=== PATIENT | male | born 1960 | race Caucasian/White ===

== ENCOUNTER → 2016-08-14 | Outpatient (CLI) | payer OTHER | LOC: FIMAGING 13:41 | PROVIDERS: ATTEND Family Medicine | DX: M25.511 Pain in right shoulder (principal) ==

== ENCOUNTER → 2016-10-18 | Outpatient (CLI) | payer OTHER | LOC: FLAB 11:00 → EDSTATUS 11:01 → FIMAGING 11:01 | PROVIDERS: ATTEND Family Medicine | DX: M12.841 Other specific arthropathies, not elsewhere classified, right hand (principal) ==

== ENCOUNTER → 2016-10-29 | Outpatient (CLI) | payer OTHER | LOC: FIMAGING 06:51 | PROVIDERS: ATTEND Family Medicine | DX: M75.111 Incomplete rotator cuff tear or rupture of right shoulder, not specified as traumatic (principal); S43.39 Subluxation and dislocation of other parts of shoulder girdle; S43.431D Superior glenoid labrum lesion of right shoulder, subsequent encounter; M25.511 Pain in right shoulder; M19.011 Primary osteoarthritis, right shoulder ==

== ENCOUNTER 2017-01-31 18:03 | Emergency (ER) | payer MEDICAID, OTHER ==
[2017-01-31 18:14] VITALS: O2SAT 93
[2017-01-31] MEDS ORDERED: NS 1,000 ML IV ONE (18:39)
--- NOTE | 2017-01-31 18:40 | EDPHY ---
HPI/HX/ROS/PE/MDM Narrative: CHIEF COMPLAINT: Right-sided rib pain HISTORY OF PRESENT ILLNESS: The patient is a 56 y/o male who presents with right sided chest pain for 4-5 days. He notes this pain feels similar to prior fractured ribs. He fell on his left side last week, but does not remember any recent falls. The pain is exacerbated while breathing. He states he last drank alcohol yesterday. Denies alcohol withdrawal seizures, pancreatitis, or hepatitis. Patient denies fever, chills, shortness of breath, palpitations, vomiting, diarrhea, urinary complaints, headache, lightheadedness. No history of head trauma, neck pain, or LOC. REVIEW OF SYSTEMS: Aside from elements discussed in the HPI, a comprehensive 10-point review of systems was reviewed. Patient appears intoxicated so ROS may be unreliable. PAST MEDICAL HISTORY: Alcoholism SOCIAL HISTORY: Friend at bedside VITAL SIGNS: Reviewed by me GENERAL: Well-developed, well-nourished, resting comfortably in no respiratory distress. HEENT: Atraumatic. Eyes: No icterus, no injection. Mouth: moist mucous membranes. No erythema or lesions. Neck: supple with no adenopathy. LUNGS: Clear to auscultation bilaterally, no wheezes, rhonchi or rales. No crepitus. CHEST: Right lateral chest wall and axilla tenderness to palpation. No crepitus. No subcutaneous air. No bruising. CARDIAC: Regular rate and rhythm, no rubs, murmurs or gallops. ABDOMEN: Soft, nontender, nondistended, bowel sounds normal. BACK: Ecchymosis on lower left back and lower left abdomen. Nontender. No CVA tenderness. EXTREMITIES: No trauma. No edema. Range of motion is normal throughout. NEURO: Alert and oriented, grossly nonfocal. SKIN: Warm and dry, no rash. PSYCHIATRIC: Normal mentation, no agitation. Portions of this note were transcribed by a medical office supervisor. I personally performed a history, physical exam, medical decision making, and confirmed accuracy of information the transcribed note. ED Course: The patient is a 56 y/o male who presents with right lateral chest wall and axilla tenderness. He is an alcoholic, but denies drinking anything today. Plan on chest x-ray to rule out rib fractures as well as baseline lab testing. No acute right sided fractures on xray. Labs demonstrate elevation of LFTs, lipase, and a markedly elevated serum alcohol level of 421. 2000: Patient requesting to be discharged. Held long discussion concerning the lab results and the fact that patient is quite functional at a alcohol level of 421. He insists that his last drink was last night. Sober friend will take patient home. Return precautions given. See discharge instructions. - Data Points Imaging Results: CXR: Impression: ? Any acute symptoms related to the left eighth rib or thoracic spine. Read by Dr Sofia. Laboratory Results: Laboratory Results 01/31/17 18:43 01/31/17 18:43 Medications Given: Discontinued Medications Sodium Chloride (Ns) 1,000 mls @ 0 mls/hr IV EDNOW ONE; Wide Open PRN Reason: Protocol Stop: 01/31/17 18:40 Last Admin: 01/31/17 18:44 Dose: 1,000 mls General Time Seen by Provider: 01/31/17 18:21 Initial Vital Signs: Initial Vital Signs Temperature (C) 36.9 C 01/31/17 18:11 Heart Rate 87 01/31/17 18:11 Respiratory Rate 18 01/31/17 18:11 Blood Pressure 132/88 H 01/31/17 18:11 O2 Sat (%) 93 01/31/17 18:11 O2 Delivery Mode Room Air Allergies/Adverse Reactions: No Known Allergies Allergy (Unverified 01/31/17 18:11) Home Medications: Medication Instructions Recorded NK [No Known Home Meds] 01/31/17 Departure - Departure Disposition: Home, Routine, Self-Care Clinical Impression: Alcohol intoxication Qualifiers: Complication of substance-induced condition: uncomplicated Qualified Code(s): F10.920 - Alcohol use, unspecified with intoxication, uncomplicated Rib contusion Qualifiers: Encounter type: initial encounter Laterality: right Qualified Code(s): S20.211A - Contusion of right front wall of thorax, initial encounter Condition: Fair Instructions: Alcohol Intoxication (ED), Abuse of Alcohol (ED), Alcohol Use Disorder (ED) Additional Instructions: Your alcohol level is evening is significantly elevated, over 4 times the legal limit. Your chest x-ray demonstrates no rib fractures. Stop drinking alcohol in excessive quantities. At this point, your life is being threatened by your alcohol use. Referrals: Power Bernabe [Primary Care Provider] - As per Instructions Report Scribed for: Eloisa Cardona Report Scribed by: Alise Lutz Date of Report: 01/31/17 Time of Report: 19:02
[2017-01-31 18:52] LABS: % IMMATURE GRANULYOCYTES 0.7 % (0.0-1.1); ABSOLUTE IMMATURE GRANULOCYTES 0.03 10^3/uL (0.00-0.10); ADD DIFF? NO; ADD MORPH? NO; ADD SCAN? NO; ATYPICAL LYMPHOCYTE FLAG 10 (0-99); FRAGMENT RBC FLAG 10 (0-99); HEMATOCRIT 43.6 % (40.0-51.0); LEFT SHIFT FLG 0 (0-99); LIPEMIA HEMOLYSIS FLAG 90 (0-99); MEAN CELL HEMOGLOBIN 32.9 pg (27.9-34.1); MEAN CELL HEMOGLOBIN CONCENTR. 34.4 g/dL (32.4-36.7); MEAN CELL VOLUME 95.6 fL (81.5-99.8); MEAN PLATELET VOLUME 8.7 fL (8.7-11.7); PLATELET CLUMPS FLAG 10 (0-99); PLATELET COUNT 187 10^3/uL (150-400); RED BLOOD CELL COUNT 4.56 10^6/uL (4.40-6.38); RED CELL DISTRIBUTION WIDTH 13.8 % (11.5-15.2)
[2017-01-31 19:13] LABS: INR 1.03 (0.83-1.16); PROTIME(PATIENT) 13.4 SEC (12.0-15.0)
[2017-01-31 19:14] LABS: APTT 26.9 SEC (23.0-38.0)
[2017-01-31 19:17] LABS: ALANINE AMINOTRANSFERASE 82 IU/L (21-72); ALBUMIN 4.6 g/dL (3.5-5.0); ALKALINE PHOSPHATASE 103 IU/L (38-126); ANION GAP 21 mEq/L (8-16); ASPARTATE AMINOTRANSFERASE 101 IU/L (17-59); BILIRUBIN,TOTAL 0.7 mg/dL (0.1-1.4); BILIRUBIN-CONJUGATED 0.4 mg/dL (0.0-0.5); BILIRUBIN-UNCONJUGATED 0.3 mg/dL (0.0-1.1); CALCIUM 8.7 mg/dL (8.5-10.4); CARBON DIOXIDE 21 mEq/l (22-31); CHLORIDE 97 mEq/L (97-110); CREATININE 0.6 mg/dL (0.7-1.3); GLOMERULAR FILTRATION RATE > 60; GLUCOSE 74 mg/dL (70-100); POTASSIUM 4.1 mEq/L (3.5-5.2); SODIUM 139 mEq/L (134-144); TOTAL PROTEIN 7.1 g/dL (6.3-8.2)
[2017-01-31 19:35] LABS: ETHANOL SERUM 421 mg/dL (0-10)
[2017-01-31 20:17] VITALS: BP 121/77; PULSE 85; RESP 16; TEMP 97.9
== END 2017-01-31 20:17 | disposition home or self-care (01) ==
DX: S20.211A Contusion of right front wall of thorax, initial encounter (principal); W18.39XA Other fall on same level, initial encounter; E86.9 Volume depletion, unspecified; F10.920 Alcohol use, unspecified with intoxication, uncomplicated
CPT/HCPCS: G0480

== ENCOUNTER 2017-03-31 05:53 | Day surgery (SDC) | payer MEDICAID ==
--- NOTE | 2017-03-28 11:08 | PDHPUP ---
History & Physical Update H&P update statement: This history and physical update is based on an assessment of the patient which was completed after admission or registration (within 24 hours), but prior to the surgery/procedure. H&P update: H&P reviewed & patient examined, no change in patient's condition since H&P completed H&P changes: Patient seen in office at [facility] [place] on 03/18/17 for pre op and H&P, no change since then
--- NOTE | 2017-03-28 11:08 | PDHPUP ---
History & Physical Update H&P update statement: This history and physical update is based on an assessment of the patient which was completed after admission or registration (within 24 hours), but prior to the surgery/procedure. H&P update: H&P reviewed & patient examined, no change in patient's condition since H&P completed H&P changes: Patient seen in office at [facility] [place] on 03/18/17 for pre op and H&P, no change since then
--- NOTE | 2017-03-28 11:08 | PDHPUP ---
History & Physical Update H&P update statement: This history and physical update is based on an assessment of the patient which was completed after admission or registration (within 24 hours), but prior to the surgery/procedure. H&P update: H&P reviewed & patient examined, no change in patient's condition since H&P completed H&P changes: Patient [place] [facility] [place] pre op and H&P, no change since then
[2017-03-31] MEDS ORDERED: ceFAZolin 2 GM/SWFI 2 GM/20 ML SYR IVP ONE (06:09)
[2017-03-31] MEDS ORDERED: LR 1,000 ML IV SCH (06:09)
[2017-03-31] MEDS ORDERED: ROPIVACAINE HCL 20 MG/10 ML INJ EP ONE ×2 (06:16→06:58)
[2017-03-31] MEDS ORDERED: PROPOFOL 200 MG/20 ML VIAL ONE ×2 (06:41)
[2017-03-31] MEDS ORDERED: LIDOCAINE 2% 100 MG/5 ML SYR ONE (06:41)
[2017-03-31] MEDS ORDERED: fentaNYL 100 MCG/2 ML INJ ONE (06:41)
[2017-03-31] MEDS ORDERED: ROCURONIUM 50 MG/5 ML VIAL ONE (06:41)
[2017-03-31] MEDS ORDERED: clonIDINE 1 MG/10 ML VIAL EP ONE (06:48)
[2017-03-31] MEDS ORDERED: ROPIVACAINE HCL 150 MG/30 ML INJ ONE (06:48)
[2017-03-31] MEDS ORDERED: LIDOCAINE 1% 2 ML INJ ONE (06:56)
[2017-03-31] MEDS ORDERED: MIDAZOLAM 2 MG/2 ML VIAL IVP ONE (06:57)
--- NOTE | 2017-03-31 07:01 | PDANEPAE ---
ANE History of Present Illness 56 yo M with R shoulder rotator cuff injury and labral tear here for arthroscopy and repair ANE Past Medical History - Cardiovascular History Hx Hypertension: No Hx Arrhythmias: No Hx Chest Pain: No Hx Coronary Artery / Peripheral Vascular Disease: No Hx CHF / Valvular Disease: No Hx Palpitations: No - Pulmonary History Hx COPD: No Hx Asthma/Reactive Airway Disease: No Hx Recent Upper Respiratory Infection: No Hx Oxygen in Use at Home: No Hx Sleep Apnea: No Sleep Apnea Screening Result - Last Documented: Negative - Neurologic History Hx Cerebrovascular Accident: No Hx Seizures: No Hx Dementia: No - Endocrine History Hx Diabetes: No - Renal History Hx Renal Disorders: No - Liver History Hx Hepatic Disorders: No - Neurological & Psychiatric Hx Hx Neurological and Psychiatric Disorders: No - Cancer History Hx Cancer: No - Congenital Disorder History Hx Congenital Disorders: No - GI History Hx Gastrointestinal Disorders: No Gastrointestinal History Comment: occ reflux with spicy food - Other Health History Other Health History: wears glasses for distance - Chronic Pain History Chronic Pain: No - Surgical History Prior Surgeries: right shoulder surgery 40 yrs ago. right big toe 10 years go. broken ribs and collapsed lung 2012 ANE Review of Systems Review of Systems: - Exercise capacity Exercise capacity: >=4 METS METS (RN): 4 METS - Systems Muscolosketal: Reports: other (OA) ANE Patient History - Allergies Allergies/Adverse Reactions: No Known Allergies Allergy (Verified 03/20/17 11:51) - Home Medications Home Medications: Herbals/Supplements -Info Only 03/20/17 [Last Taken 03/25/17] IBUPROFEN 03/20/17 [Last Taken 03/25/17] Naltrexone HCl 03/20/17 [Last Taken 03/24/17] - NPO status NPO Status: no food or drink >8 hours NPO Since - Liquids (Date): 03/30/17 NPO Since - Liquids (Time): 21:00 NPO Since - Solids (Date): 03/30/17 NPO Since - Solids (Time): 18:30 - Anes Hx Anes Hx: no prior problems - Smoking Hx Smoking Status: Never smoked - Alcohol Use Alcohol Use: Sober - Family Anes Hx Family Anes Hx: none Family Hx Anesthesia Complications: none ANE Labs/Vital Signs - Vital Signs Blood Pressure: 104/64 Heart Rate: 67 Respiratory Rate: 17 O2 Sat (%): 94 Height: 172.72 cm Weight: 83.915 kg
--- NOTE | 2017-03-31 07:06 | PDANEPAE ---
ANE Past Medical History - Cardiovascular History Hx Hypertension: No Hx Arrhythmias: No Hx Chest Pain: No Hx Coronary Artery / Peripheral Vascular Disease: No Hx CHF / Valvular Disease: No Hx Palpitations: No - Pulmonary History Hx COPD: No Hx Asthma/Reactive Airway Disease: No Hx Recent Upper Respiratory Infection: No Hx Oxygen in Use at Home: No Hx Sleep Apnea: No Sleep Apnea Screening Result - Last Documented: Negative - Neurologic History Hx Cerebrovascular Accident: No Hx Seizures: No Hx Dementia: No - Endocrine History Hx Diabetes: No - Renal History Hx Renal Disorders: No - Liver History Hx Hepatic Disorders: No - Neurological & Psychiatric Hx Hx Neurological and Psychiatric Disorders: No - Cancer History Hx Cancer: No - Congenital Disorder History Hx Congenital Disorders: No - GI History Hx Gastrointestinal Disorders: No Gastrointestinal History Comment: occ reflux with spicy food - Other Health History Other Health History: wears glasses for distance - Chronic Pain History Chronic Pain: No - Surgical History Prior Surgeries: right shoulder surgery 40 yrs ago. right big toe 10 years go. broken ribs and collapsed lung 2012 ANE Review of Systems Review of Systems: - Exercise capacity METS (RN): 4 METS ANE Patient History - Allergies Allergies/Adverse Reactions: No Known Allergies Allergy (Verified 03/20/17 11:51) - Home Medications Home Medications: Herbals/Supplements -Info Only 03/20/17 [Last Taken 03/25/17] IBUPROFEN 03/20/17 [Last Taken 03/25/17] Naltrexone HCl 03/20/17 [Last Taken 03/24/17] - NPO status NPO Since - Liquids (Date): 03/30/17 NPO Since - Liquids (Time): 21:00 NPO Since - Solids (Date): 03/30/17 NPO Since - Solids (Time): 18:30 - Smoking Hx Smoking Status: Never smoked - Alcohol Use Alcohol Use: Sober - Family Anes Hx Family Hx Anesthesia Complications: none ANE Labs/Vital Signs - Vital Signs Blood Pressure: 104/64 Heart Rate: 67 Respiratory Rate: 17 O2 Sat (%): 94 Height: 172.72 cm Weight: 83.915 kg ANE Physical Exam - Airway Neck exam: FROM Mallampati Score: Class 2 Mouth exam: normal dental/mouth exam - Pulmonary Pulmonary: no respiratory distress - Cardiovascular Cardiovascular: regular rate and rhythym - ASA Status ASA Status: II ANE Anesthesia Plan Anesthesia Plan: general endotracheal anesthesia Regional Anesthesia: single shot NB, interscalene BP NB
--- NOTE | 2017-03-31 07:30 | PDHPUP ---
History & Physical Update H&P update statement: This history and physical update is based on an assessment of the patient which was completed after admission or registration (within 24 hours), but prior to the surgery/procedure. H&P update: H&P reviewed & patient examined, no change in patient's condition since H&P completed
[2017-03-31] MEDS ORDERED: DEXAMETHASONE 4 MG/ML VIAL ONE (08:15)
[2017-03-31] MEDS ORDERED: ONDANSETRON 4 MG/2 ML VIAL ONE (08:15)
[2017-03-31] MEDS ORDERED: NALOXONE HCL 0.4 MG/ML INJ IVP PRN (09:45)
[2017-03-31] MEDS ORDERED: ONDANSETRON 4 MG/2 ML VIAL IVP PRN (09:45)
[2017-03-31] MEDS ORDERED: HYDROCODONE/APAP 5/325 TAB PO PRN (09:45)
[2017-03-31] MEDS ORDERED: fentaNYL 100 MCG/2 ML INJ IVP PRN (09:45)
[2017-03-31] MEDS ORDERED: ACETAMINOPHEN 500 MG TAB PO PRN (09:45)
[2017-03-31 10:22] VITALS: PULSE 60; TEMP 96.8
--- NOTE | 2017-03-31 10:45 | POSTOPPROG ---
Post Op Note Date of Operation: 03/31/17 Surgeon: Stefania Newman Child Caregiver Private Home: Leona Rodriguez Anesthesiologist: Dr. Myron Perez Anesthesia: GET(General Endotracheal) Pre-op Diagnosis: right shoulder pain Post-op Diagnosis: right shoulder pain Indication: right shoulder pain Procedure: R shoulder subscapularis repair, labral debridement, SAD, biceps tenodesis Inf/Abcess present in the surg proc area at time of surgery?: No EBL: 50-100 Complications: none
--- NOTE | 2017-03-31 10:48 | SOAPPROG ---
FREDDIE Progress Note Assessment/Plan: Assessment/Plan: 56y/o male s/p right shoulder subscap repair, SAD, biceps tenodesis, labral debridement - stable and doing well - patient was on Naltrexone for alcoholism, quit drinking approximately 9 weeks ago. Has been off Naltrexone for 8 days and doing fine. Patient elects to discontinue Natrexone, has discussed this in the past with Dr. Bernabe who prescribed the medication. Will also f/u with Dr. Obrien in 1-2 days. Patients states he is feeling fine with continuing to be sober and states this will not be an issue - medications as directed, sling - ok for pendulum exercises - home when PACU criteria met - call with issues or concerns 03/31/17 10:45 Subjective: Shoulder is achy, otherwise feeling fine Objective: Vital Signs Temp Pulse Resp BP Pulse Ox 36.0 C 60 14 90/61 L 98 03/31/17 10:03 03/31/17 10:03 03/31/17 10:20 03/31/17 10:20 03/31/17 10:20 NAD, well appearing, no distress EOMi, face symmetric MAEx4 incisions CDI ICD10 Worksheet Patient Problems: Problems Problem Status Onset Shoulder pain Acute - ICD10 Problem Qualifiers (1) Shoulder pain
--- NOTE | 2017-03-31 10:55 | GOP ---
[f rep st] OPERATIVE REPORT DATE OF OPERATION: 03/31/2017 SURGEON: Stefania Newman MD FINAL TOUCH UP PAINTER: Leona Rodriguez, PAC Medically required for positioning of the arm during arthroscopic s ubscap repair and open subpectoral biceps tenodesis and careful retraction of vital neurovascular str uctures. PREOPERATIVE DIAGNOSIS: 1. Right shoulder pain. 2. Right shoulder subscapularis tear. 3. Biceps subluxation. 4. Labral tear. 5. Cuff tear. 6. Impingement, subacromial. 7. History of coracoacromial ligament reconstruction. POSTOPERATIVE DIAGNOSIS: 1. Right shoulder pain. 2. Right shoulder subscapularis tear. 3. Biceps subluxation. 4. Labral tear. 5. Cuff tear. 6. Impingement, subacromial. 7. History of coracoacromial ligament reconstruction. PROCEDURE PERFORMED: 1. Arthroscopic subscapularis and rotator cuff repair. 2. Open subpectoral biceps tenodesis. 3. Arthroscopic subacromial decompression. 4. Arthroscopic labral debridement. 5. Arthroscopic extensive synovectomy and bursectomy. 6. Arthroscopic distal clavicle excision, and co-planing. FINDINGS: ESTIMATED BLOOD LOSS: Minimal. INDICATIONS: A 56-year-old male with right shoulder pain. Clinical, radiographic and MRI confirmed biceps subluxation, anterior shoulder pain. Failed nonoperative measures. Presents for operative fi xation and stabilization of shoulder. DESCRIPTION OF PROCEDURE: The patient identified in the preoperative holding area, consent, laterali ty and preoperative antibiotic antibiotics were confirmed delivered. All questions were answered. H is significant other was available at the bedside for questions and answers. Patient brought into the operating room. Right-sided interscalene block by Anesthesia. General anes thesia. Beach chair position. All extremities well padded. The right upper extremity was prepped a nd draped in the usual sterile fashion. Surgical time-out was performed. Standard posterior portal technique diagnostic arthroscopy included less than 25% supraspinatus tear. The upper 3rd of the sub scapularis had a cleavage tear and completely off the lesser tuberosity. The inferior portion remain ed intact. The biceps split the interval and was medially subluxed. The coracoid did not seem to be impinging. We placed an anterior interval portal, did a rotator interval debridement. Did a lesser tuberosity debridement. Got to bleeding bone. Placed a Helicoil anchor with mattress stitches with 90 degrees of arm flexion and slight internal rotation. The labrum was debrided. The labrum was st able. We did a biceps tenotomy in the joint. We did an extensive synovectomy. All arthroscopic fluid and debris were removed. The open subpectoral portion part underwent. We mad e a 3 cm axillary incision. Blunt dissection sub pectoralis. Easily found the biceps. A 90 degree clamp, right angle. We palpated the bicipital groove. Measured about a 7 mm tendon stump. About 1 cm from the musculotendinous junction, we placed a spade tip pin, over-reamed with a unicortical 7 mm hole and then placed the biceps button and sucked the tendon down to the bone. We placed a stitch t hrough the tendon stump and did multiple half hitches. We washed out the wound with 100 cc of warm n ormal saline and closed with 3-0 Monocryl. Attention was then turned to the subacromial space. We did a thorough bursectomy. The CA ligament w as injected. There was about a 3 mm anterior spur and overhang of the anterior acromion. We also no ticed a medial acromial osteophyte and distal clavicle osteophyte. We did a subacromial decompressio n about 4 mm as well, the distal clavicle excision and co-plane. We preserved the medial bursa. The rotator cuff looked intact from the bursal side. We used a lateral and posterior cutting block port al technique. All arthroscopic fluid and debris were removed. Portal sites closed with 3-0 Monocryl . Then, 10 cc of 0.2% ropivacaine were injected in the subacromial space, 10 cc around the incision. Mastisol, Steri-Strips, Xeroform, 4x4s, ABD, and a Medipore tape. Sling applied. IMPLANTS: 1. Helicoil [employer] double loaded anchor at the lesser tuberosity. 2. Biceps button proximal, Arthrex. COMPLICATIONS: None. TOTAL SURGICAL TIME: Was 1 hour and 50 minutes. DISPOSITION: Extubated, awake to the PACU in stable condition. /[id number]/MODL
[2017-03-31 10:59] VITALS: O2SAT 96
[2017-03-31 11:28] VITALS: RESP 16
[2017-03-31 12:31] VITALS: BP 101/63
== END 2017-03-31 12:15 | disposition home or self-care (01) ==
LOC: FSGY 05:53
PROVIDERS: ATTEND Orthopaedic Surgery
PROC: 0LQ14ZZ Repair Right Shoulder Tendon, Percutaneous Endoscopic Approach (ICD-10-PCS; principal; 2017-03-31 07:15)
PROC: 0RNJ4ZZ Release Right Shoulder Joint, Percutaneous Endoscopic Approach (ICD-10-PCS; principal; 2017-03-31 07:15)
PROC: 0RBJ4ZZ Excision of Right Shoulder Joint, Percutaneous Endoscopic Approach (ICD-10-PCS; principal; 2017-03-31 07:15)
DX: S46.011A Strain of muscle(s) and tendon(s) of the rotator cuff of right shoulder, initial encounter (principal); S43.081A Other subluxation of right shoulder joint, initial encounter; S43.431A Superior glenoid labrum lesion of right shoulder, initial encounter; M75.41 Impingement syndrome of right shoulder
CPT/HCPCS: C1713; J0690; J0735; J1100; J2001; J2250; J2405; J2704; J2795; J3010